=== PATIENT | female | born 1975 | race Two or more races ===

== ENCOUNTER 2016-08-19 07:10 | Inpatient (IN) | payer BC ==
[2016-08-19] MEDS ORDERED: LR 1,000 ML IV PRN (09:05)
[2016-08-19] MEDS ORDERED: OLIVE OIL 118 ML BTL MISC PRN (09:05)
[2016-08-19] MEDS ORDERED: LIDOCAINE 1% 30 ML SDV SC PRN (09:05)
[2016-08-19] MEDS ORDERED: TERBUTALINE SULFATE 1 MG/ML VIAL IV PRN (09:05)
[2016-08-19] MEDS ORDERED: OXYTOCIN/RINGERS LACTATE 1,000 ML IV PRN (09:05)
[2016-08-19] MEDS ORDERED: EPSOM SALT 454 GM TP PRN (09:05)
[2016-08-19] MEDS ORDERED: PHENYLEPHRINE HCL 100 MCG/ML SYR ONE (09:55)
[2016-08-19] MEDS ORDERED: BUPIVACAINE 0.25% 30 ML SDV ONE (09:55)
[2016-08-19] MEDS ORDERED: fentaNYL 2MCG/ML/BUP 0.1% RTU 100 ML BAG EP ONE (09:55)
[2016-08-19] MEDS ORDERED: fentaNYL 100 MCG/2 ML INJ ONE (09:56)
[2016-08-19 10:05] LABS: % IMMATURE GRANULYOCYTES 0.5 % (0.0-1.1); ABSOLUTE IMMATURE GRANULOCYTES 0.09 10^3/uL (0.00-0.10); ADD DIFF? NO; ADD MORPH? NO; ADD SCAN? NO; ATYPICAL LYMPHOCYTE FLAG 0 (0-99); FRAGMENT RBC FLAG 0 (0-99); HEMATOCRIT 41.5 % (38.0-47.0); HEMOGLOBIN 14.5 g/dL (12.6-16.3); LEFT SHIFT FLG 10 (0-99); LIPEMIA HEMOLYSIS FLAG 90 (0-99); MEAN CELL HEMOGLOBIN 30.7 pg (27.9-34.1); MEAN CELL HEMOGLOBIN CONCENTR. 34.9 g/dL (32.4-36.7); MEAN CELL VOLUME 87.7 fL (81.5-99.8); MEAN PLATELET VOLUME 10.9 fL (8.7-11.7); PLATELET CLUMPS FLAG 0 (0-99); PLATELET COUNT 215 10^3/uL (150-400); RED BLOOD CELL COUNT 4.73 10^6/uL (4.18-5.33); RED CELL DISTRIBUTION WIDTH 12.8 % (11.5-15.2)
[2016-08-19] MEDS ORDERED: ONDANSETRON 4 MG/2 ML VIAL IVP PRN (10:57)
[2016-08-19] MEDS ORDERED: PHENYLEPHRINE HCL 100 MCG/ML SYR IVP PRN (10:57)
[2016-08-19] MEDS ORDERED: fentaNYL 2MCG/ML/BUP 0.1% RTU 100 ML EP SCH (11:00)
[2016-08-19] MEDS ORDERED: LR 500 ML IV SCH (11:00)
--- NOTE | 2016-08-19 11:03 | PREANESOB ---
Obstetric Pre-Anesthesia Info - General Info Proposed Procedure: Labor and delivery. : 2 Para: 1 WBD: 39 - Info Status: Full Term Monitors: External FHR Baseline (bpm): 145 FHR Pattern: Reassuring - Labor Status Cervical Dilation per last OB SVE: 4 Indications for Labor Analgesia: Pain Control Labor Epidural: Proposed Anesthesia ROS: Prior labor epidural. Allergies/Adverse Reactions: Allergy/AdvReac Type Severity Reaction Status Date / Time No Known Allergies Allergy Unverified 03/02/13 19:05 Home Medications: Medication Instructions Recorded Clindamycin Phos/Benzoyl Perox 45 gm TP 03/02/13 [Duac Gel] Vit27&Calcium/Iron/FA 1 each PO DAILY 03/02/13 [ Rx 1 Tablet (RX)] Visit Medications: Generic Name Dose Route Start Last Admin Trade Name Freq PRN Reason Stop Dose Admin Lactated Ringer's 1,000 mls @ 0 mls/hr 08/19/16 09:05 Lr IV 02/15/17 09:04 PRN PRN SEE PROTOCOL CONDITIONS Protocol Per Protocol Oxytocin/Lactated Ringer's 1,000 mls @ 150 mls/hr 08/19/16 09:05 Pitocin 20 Units/Lr (Premix) IV PRN PRN Post- bleeding Ibuprofen 600 mg 08/19/16 09:05 Motrin PO 02/15/17 09:04 Q6HRS PRN post , inflammation Lidocaine HCl 30 ml 08/19/16 09:05 Lidocaine Hcl 1% SC 02/15/17 09:04 ONCE PRN Episiotomy Magnesium Sulfate 454 gm 08/19/16 09:05 Epsom Salt TP 02/15/17 09:04 PRN PRN perineal discomfort [place] Oil 118 ml 08/19/16 09:05 Sweet Oil MISC 02/15/17 09:04 ONCE PRN preneal massage Terbutaline Sulfate 0.25 mg 08/19/16 09:05 Bre[place] IV 02/15/17 09:04 ONCE PRN Tachysystole Discontinued Medications Generic Name Dose Route Start Last Admin Trade Name Freq PRN Reason Stop Dose Admin Bupivacaine HCl Confirm 08/19/16 09:55 Sensorcaine 0.25% Sdv Administered 08/19/16 09:56 Dose 30 ml .ROUTE .STK-MED ONE Fentanyl Confirm 08/19/16 09:56 Sublimaze Administered 08/19/16 09:57 Dose 100 mcg .ROUTE .STK-MED ONE Fentanyl/Bupivacaine HCl Confirm 08/19/16 09:55 Fentanyl/Bupivacaine/Ns 2 Mcg/Ml 0.1% (Premix Administered 08/19/16 09:56 Dose 100 ml EP .STK-MED ONE Phenylephrine HCl Confirm 08/19/16 09:55 Ramses-Synephrine Administered 08/19/16 09:56 Dose 1,000 mcg .ROUTE .STK-MED ONE - Anesthesia History Response to Local Anesthetics: Normal Anesthesia & Operative History: No Prior Problems - Social History Substance Use/Abuse: Denies - Focused Exam Blood Pressure: 132/82 Heart Rate: 67 Respiratory Rate: 20 Height/Weight (Nursing): Height 162.56 cm Weight 78.925 kg Physical Exam: Within normal limits. ASA Status: II Labs: 08/19/16 09:45 Patient ABO/Rh B POSITIVE 08/19/16 09:45 - Plan Anesthetic Plan: CSE Consent Signed and on Chart: Yes Patient/Guardian Understands and Agrees to Plan: Yes
--- NOTE | 2016-08-19 11:04 | POSTANESTH ---
Post Anesthetic Evaluation Cardiovascular Status: Normal, Stable Respiratory Status: Normal, Stable, Similar to Pre-op Cond. (Tolerated CSE well , stable, comfortable.) Level of Consciousness/Mental Status: Can Participate in Eval, Alert and Oriented Pain Control: Adequate, Prn Tx Ordered Nausea/Vomiting Control: Adequate, Prn Tx Ordered Complications Possibly Related to Anesthesia: None Noted
--- NOTE | 2016-08-19 11:18 | GHP ---
[f rep st] HISTORY AND PHYSICAL DATE OF ADMISSION: 08/19/2016 CHIEF COMPLAINT: Contractions. HISTORY OF PRESENT ILLNESS: The patient is a healthy 41-year-old G2, P1-0-0-1, at 39 weeks 2 days by last menstrual period and first-trimester ultrasound. She has a history of an uncomplicated term delivery in 2012. She called this morning at 6 a.m. stating she was having painful labor contractions. She was evaluated on Labor and Delivery shortly after 7 a.m., and was found to have a closed posterior cervix. She initially walked for a few hours after an NST was done confirming reassuring status. She was then re-evaluated on Labor and Delivery at 9 a.m. and was found to have progressed to 4 cm and she was admitted in labor. She did proceed shortly thereafter with epidural management for her painful contractions. Reactive NST. HISTORY: Notable for advanced maternal age with negative cell free DNA screening, anatomy ultrasound and AFP testing. Her OB labs are notable for blood type of B positive with negative antibody screen. Most recent hematocrit of 39.9. Nonreactive RPR, HIV and hepatitis B surface antigen, and negative gonorrhea and chlamydia screen. Her 1 hour Glucola was normal at 120. Her GBS was negative on July 24. She also has normal platelets at 207,000 and she is immune to rubella. She has received her flu and Tdap vaccines. PAST MEDICAL HISTORY: Noncontributory. PAST SURGICAL HISTORY: None. FAMILY HISTORY: Noncontributory. MEDICATIONS: vitamins and fish oil. OBJECTIVE: VITAL SIGNS: At time of admission blood pressure 137/82, heart rate 75, respirations 95%. Afebrile with a temperature of 37.2. GENERAL: Alert, awake, no acute distress after placement of epidural. Respirations unlabored. CARDIOVASCULAR: Regular rate. ABDOMINAL: Gravid, appropriate for a term gestation, nontender. EFW 7.5-8 pounds. EXTREMITIES: No edema. PELVIC : Sterile vaginal exam 6 cm, fore-bag palpated. Vertex presentation, -2 station. : Baseline 130, mod cyndie, + accels, no decels Contractions: Every 2-3 minutes LAB WORK: Notable for a hematocrit of 41.5 and platelets of 215. ASSESSMENT: Patient is a 41-year-old G2, P1-0-0-1, at 39 weeks 2 days with good dating, in active labor. complicated only by advanced maternal age with negative genetic screening. She has progressed from closed to 6 cm. Of note, she did have a gush of clear fluid but has a forebag palpated on exam. She is currently comfortable with an epidural. She is GBS negative. Her status is reassuring. PLAN: Routine intrapartum care. Expectant management. Expect . /[id number]/MODL MTDD
--- NOTE | 2016-08-19 12:37 | OBPROG ---
OBG Progress Note Assessment/Plan: Assessment: @ 39w2d Active labor FHR cat 2 for rare late decel, otherwise with mod cyndie and spontaneous accels Had gush of fluid with possible light mec, but large forebag palpated on exam Plan: Expectant management Pt declines AROM at this time. Agreeable if no change on next exam Continuous monitoring Position changes, fluids, O2 prn 08/19/16 12:36 Subjective: comfortable with epidural. Not feeling any pressure Objective: 08/19/16 09:45 Patient ABO/Rh B POSITIVE 08/19/16 09:45 Temp Pulse Resp BP Pulse Ox 67 20 132/82 H 08/19/16 11:03 08/19/16 11:03 08/19/16 11:03 - SVE Dilation (cm): 7 Effacement (%): 90 Station: -2 Current Contraction Pattern: Regular FHR (bpm): 130 FHR Pattern Variability: Moderate FHR Category: 2 (rare intermittent late decel) Membranes: Intact ICD10 Worksheet Patient Problems: Problems Problem Status Onset Normal labor Acute - ICD10 Problem Qualifiers (1) Normal labor
--- NOTE | 2016-08-19 14:46 | OBPROG ---
OBG Progress Note Assessment/Plan: Assessment: @ 39w2d Active labor, currently ant lip, TRELL presentation FHR cat 2 for intermittent late decel, had a run of a about 5 in a row but improved with position change. Also increasing baseline. However with mod cyndie and spontaneous accels, no e/o acidemia, continue to monitor closely Light mec, will have SPECIAL EVENTS COORDINATOR at delivery Plan: Expectant management Stop pushing epidural button Plan to start pushing soon SPECIAL EVENTS COORDINATOR at del O2, fluids, position change 08/19/16 12:36 08/19/16 14:44 Subjective: feeling some mild pressure, continuing to push epidural button Objective: 08/19/16 09:45 Patient ABO/Rh B POSITIVE 08/19/16 09:45 Temp Pulse Resp BP Pulse Ox 67 20 132/82 H 08/19/16 11:03 08/19/16 11:03 08/19/16 11:03 - SVE Dilation (cm): 9 Effacement (%): 100 Station: 0 Current Contraction Pattern: Regular FHR (bpm): 140 FHR Pattern Variability: Moderate FHR Category: 2 Membranes: SROM Amniotic Fluid Color: Meconium Stained-Light ICD10 Worksheet Patient Problems: Problems Problem Status Onset Normal labor Acute - ICD10 Problem Qualifiers (1) Normal labor
[2016-08-19] MEDS ORDERED: MISOPROSTOL 200 MCG TAB ONE (14:47)
[2016-08-19] MEDS ORDERED: ACETAMINOPHEN 325 MG TAB PO PRN (16:22)
[2016-08-19] MEDS ORDERED: HYDROCORTISONE 0.5% CREAM TP PRN (16:22)
[2016-08-19] MEDS ORDERED: SIMETHICONE 80 MG TAB CHEW PO PRN (16:22)
[2016-08-19] MEDS ORDERED: OXYTOCIN/RINGERS LACTATE 1,000 ML IV SCH (16:30)
--- NOTE | 2016-08-19 17:23 | OBPROC ---
- Labor and Delivery Onset of Contractions Date: 08/19/16 Onset of Contractions Time: 05:00 Onset of Contractions Type: Spontaneous Rupture of Membranes Date: 08/19/16 Rupture of Membranes Type: Spontaneous Amniotic Fluid Color: Meconium Stained-Light Dilation Complete Time: 15:40 Delivery Type: Spontaneous Placenta Delivery Date: 08/19/16 Placenta Delivery Time: 15:59 Episiotomy/Laceration: 2nd Degree, Periurethral Repair: 3-0 Complications: Other (Specify) (body cord and arm cord) - Medications Labor Augmentation/Induction Meds Used: None Anesthesia: Epidural - [place] Info A Delivery Date: 08/19/16 Delivery Time: 15:55 Sex of Infant: Female Score (1 Min): 8 Score (5 Min): 8 (Pt was found to be complete at 1540. Pushed x 2 contractions and at 1555 delivered viable female infant in TRELL presentation with compound anterior hand with spontaneous cry. Delayed cord clamping x 90 seconds, then cord cut and clamped and baby brought to warmer for suctioning for meconium. IV pitocin 20 units started. Placenta delivered spontaneously after fundal massage and gentle cord traction at 1559. Fundus firm. Small 2nd degree laceration repaired in usual fashion. One stitch placed in right periurethral laceration to reapproximate. Hemostasis noted. EBL 350. Mom and baby in good condition, skin to skin.)
[2016-08-19] MEDS: IBUPROFEN 600 MG TAB PO PRN (20:15)
[2016-08-19] MEDS: DOCUSATE SODIUM 100 MG CAP PO PRN (20:15)
[2016-08-19 21:06] VITALS: O2SAT 95
[2016-08-20] MEDS: IBUPROFEN 600 MG TAB PO PRN ×4 (02:56→22:34)
[2016-08-20 07:40] VITALS: RESP 16
--- NOTE | 2016-08-20 08:05 | SOAPPROG ---
SOAP Progress Note Assessment/Plan: Assessment: 41 y.o. female s/p PPD #1. Recovering well with good pain control. . Plan: Routine care. consult. Anticipate discharge to home tomorrow. 08/20/16 08:02 Subjective: Reports feeling well with good pain control and minimal vaginal bleeding. and pumping. Eating and drinking well without nausea or vomiting. Has been out of bed and ambulating well without vertigo. Appropriate mood with good support system. Wants to stay until tomorrow. Objective: Vital Signs Temp Pulse Resp BP Pulse Ox 36.1 C 83 16 107/72 95 08/20/16 07:39 08/20/16 07:39 08/20/16 07:39 08/20/16 07:39 08/20/16 07:39 Laboratory Results 08/19/16 09:45 08/19/16 08/20/16 08/21/16 05:59 05:59 05:59 Output Total 351 Balance -351 - Time Spent With Patient Time Spent With Patient: 20 minutes - Pending Discharge Pending Discharge Within 24 Hours: Yes Pending Discharge Date: 08/21/16 Pending Discharge Time: 11:00 Physical Exam - Physical Exam General Appearance: WD/WN, alert, no apparent distress EENT: normal ENT inspection Neck: non-tender, full range of motion, normal inspection Respiratory: lungs clear Cardiac/Chest: regular rate, rhythm Abdomen: non-tender, soft Pelvic Exam: normal external exam Rectal: deferred Back: Normal inspection Skin: normal color, warm/dry Lymphatic: no adenopathy Extremities: normal range of motion, non-tender Neuro/Psych: alert, normal mood/affect, oriented x 3 ICD10 Worksheet Patient Problems: Problems Problem Status Onset Normal labor Acute
[2016-08-20] MEDS: DOCUSATE SODIUM 100 MG CAP PO PRN ×2 (08:17→22:34)
[2016-08-20] MEDS ORDERED: EPSOM SALT 454 GM TP ONE (10:04)
[2016-08-21] MEDS: DOCUSATE SODIUM 100 MG CAP PO PRN (09:31)
[2016-08-21] MEDS: IBUPROFEN 600 MG TAB PO PRN (09:35)
--- NOTE | 2016-08-21 12:44 | OBGCSDC ---
General Delivery Information - General Info : 2 Para: 2 Delivery Date: 08/19/16 Delivery Time: 13:55 Delivery Physician/CNM: Mariel Jacobo Admission Date: 08/19/16 Labs: Patient ABO/Rh B POSITIVE 08/19/16 09:45 Hct 41.5 % (38.0-47.0) 08/19/16 09:45 - Rives Info A Sex of : Female Score (1 Min): 8 Score (5 Min): 8 (Pt was found to be complete at 1540. Pushed x 2 contractions and at 1555 delivered viable female in TRELL presentation with compound anterior hand with spontaneous cry. Delayed cord clamping x 90 seconds, then cord cut and clamped and baby brought to warmer for suctioning for meconium. IV pitocin 20 units started. Placenta delivered spontaneously after fundal massage and gentle cord traction at 1559. Fundus firm. Small 2nd degree laceration repaired in usual fashion. One stitch placed in right periurethral laceration to reapproximate. Hemostasis noted. EBL 350. Mom and baby in good condition, skin to skin.) Vaginal - Diagnosis IUP (Weeks): 39 2/7 Labor: Spontaneous Rupture of Membranes Type: Spontaneous Amniotic Fluid Color: Meconium Stained-Light Laceration: 2nd Degree Repair: 3-0 Complications: Other (Specify) (body cord and arm cord) - Operations/Procedures Delivery Type: Spontaneous Anesthesia: Epidural - Delivery Anesthesia: Epidural Discharge Information - Discharge Information Discharge Medications: Ibuprofen, Vitamins Condition: Good Instruction/Follow Up: Six Weeks Discharge Physician/CNM: Siomara Tavarez Discharge Date: 08/21/16 Dictated: No
[2016-08-21 12:58] VITALS: BP 111/64; PULSE 70; TEMP 97.9
== END 2016-08-21 13:25 | disposition home or self-care (01) | DRG 775 ==
LOC: FLD 07:10 → FOB 20:00
PROVIDERS: ADMIT Obstetrics & Gynecology; ATTEND Obstetrics & Gynecology
PROC: 0KQM0ZZ Repair Perineum Muscle, Open Approach (ICD-10-PCS; principal; 2016-08-19)
PROC: 10E0XZZ Delivery of Products of Conception, External Approach (ICD-10-PCS; principal; 2016-08-19)
DX: O70.1 Second degree perineal laceration during delivery (principal); O77.0 Labor and delivery complicated by meconium in amniotic fluid; O69.82X0 Labor and delivery complicated by other cord entanglement, without compression, not applicable or unspecified; Z3A.39 39 weeks gestation of pregnancy; Z37.0 Single live birth
CPT/HCPCS: G0463; J2370; J3010; J3105